=== PATIENT | female | born 1960 | race Caucasian/White ===

== ENCOUNTER 2022-02-10 13:23 | Emergency (ER) | payer MEDICAID ==
[~2022-02-10] VITALS: Ht 152.4 cm; Wt 65.8 kg
[2022-02-10 13:28] VITALS: BP 153/81
--- NOTE | 2022-02-10 13:32 | NUR ---
Patient ambulted with steady gait to bed 1.
--- NOTE | 2022-02-10 13:35 | NUR ---
PT RECEIVED, CARE ASSUMED. PT BIB DAUGHTER FOR EVALUATION OF ANXIETY EPISODE. PT STATES HER LATELY. PT DENIES WANTING TO HURT SELF BUT FEELS DEPRESSED. PT IN ROOM, AWAITING TO BE SEEN BY
[2022-02-10 15:00] LABS: BASOPHILS % (AUTO) 0.3 % (0.0-2.0); EOSINOPHILS % (AUTO) 0.1 % (0.0-4.0); HEMATOCRIT 40.3 % (36-48); HEMOGLOBIN 13.1 g/dL (12.0-16.0); LYMPHOCYTES # (AUTO) 2.3 K/uL (2.5-16.5); LYMPHOCYTES % (AUTO) 29.8 % (20.5-51.1); MEAN CORPUSCULAR HEMOGLOBIN 29 pg (27-31); MEAN CORPUSCULAR HGB CONC 33 g/dL (33-37); MEAN CORPUSCULAR VOLUME 89.9 fL (80-94); MONOCYTES # (AUTO) 0.6 K/uL (0.8-1.0); MONOCYTES % (AUTO) 8.5 % (1.7-9.3); NEUTROPHILS # (AUTO) 4.6 K/uL (1.8-7.7); NEUTROPHILS % (AUTO) 61.3 % (42.2-75.2); PLATELET COUNT (AUTO) 238 K/uL (140-450); RED BLOOD CELL COUNT(AUTO) 4.48 MIL/uL (4.20-5.40); RED CELL DISTRIBUTION WIDTH 13.5 % (11.6-13.7); WHITE BLOOD COUNT (AUTO) 7.6 K/uL (4.8-10.8)
[2022-02-10 15:52] LABS: ALBUMIN 3.5 g/dL (3.4-5.0); ANION GAP 7.4 (8-16); ASPARTATE AMINOTRANSFERASE 20 U/L (15-37); CARBON DIOXIDE 30.8 mmol/L (21-32); CHLORIDE 105 mmol/L (98-107); CREATININE 0.5 mg/dL (0.6-1.3); GFR ARICAN-AMERICAN 161 mL/min (>90); GLUCOSE 90 mg/dL (74-106); POTASSIUM 4.2 mmol/L (3.5-5.1); SODIUM SERUM 139 mmol/L (136-145); TOTAL BILIRUBIN 0.3 mg/dL (0.0-1.0); UREA NITROGEN, BLOOD 12 mg/dL (7-18)
[2022-02-10 18:05] VITALS: BP 138/78
--- NOTE | 2022-02-10 18:07 | NUR ---
Patient discharged with v/s stable. Written and verbal after care instructions given and explained. Patient verbalized understanding. Ambulatory with steady gait. All questions addressed prior to discharge. Advised to follow up with PMD.
== END 2022-02-10 18:07 | disposition home or self-care (01) ==
LOC: MED 13:23
DX: R07.89 Other chest pain (principal)
CPT/HCPCS: 36415; 71045; 80053; 84484; 85025; 93005; 99285; Q0092

== ENCOUNTER 2022-05-21 02:33 | Emergency (ER) | payer MEDICAID ==
[~2022-05-21] VITALS: Ht 149.9 cm; Wt 65.3 kg
[2022-05-21 02:49] VITALS: BP 111/65
--- NOTE | 2022-05-21 02:49 | NUR ---
Dr. Hummel examining patient.
[2022-05-21 02:58] VITALS: BP 111/65
--- NOTE | 2022-05-21 02:58 | NUR ---
Patient discharged with v/s stable. Written and verbal after care instructions given and explained by Shaheed Mcmillan with park interpreter. Patient verbalized understanding. Ambulatory with steady gait. All questions addressed prior to discharge. Advised to follow up with PMD.
== END 2022-05-21 02:58 | disposition home or self-care (01) ==
LOC: MED 02:33
DX: F41.9 Anxiety disorder, unspecified (principal); E11.9 Type 2 diabetes mellitus without complications
CPT/HCPCS: 99281